=== PATIENT | female | born 2000 | race Caucasian/White ===

== ENCOUNTER 2021-02-27 19:24 | Emergency (ER) | payer OTHER ==
[~2021-02-27] VITALS: Ht 162.6 cm; Wt 50.0 kg
[2021-02-27 19:56] LABS: BASO % 0.2 % (0.0-1.0); EOS # 0.1 10^3/uL (0.0-0.5); EOS % 1.1 % (0.0-3.0); HEMATOCRIT 36.1 % (36.0-47.0); HEMOGLOBIN 11.8 g/dl (12.0-15.5); LYMPH # 1.4 10^3/uL (1.5-5.0); LYMPH % 11.2 % (24.0-44.0); MEAN CORPUSCULAR HEMOGLOBIN 29.7 pg (27.0-33.0); MEAN CORPUSCULAR HGB CONC 32.7 g/dl (32.0-36.5); MEAN CORPUSCULAR VOLUME 90.9 fl (80.0-96.0); MONO # 0.7 10^3/uL (0.0-0.8); MONO % 5.6 % (2.0-8.0); NEUTROPHILS # 10.4 10^3/uL (1.5-8.5); NEUTROPHILS % 81.4 % (36.0-66.0); PLATELET COUNT, AUTOMATED 150 10^3/uL (150-450); RED BLOOD COUNT 3.97 10^6/uL (4.00-5.40); WHITE BLOOD COUNT 12.8 10^3/uL (4.0-10.0)
[2021-02-27 20:30] LABS: HCG, SERUM QUALITATIVE POSITIVE (NEGATIVE)
[2021-02-27 20:34] LABS: BLOOD UREA NITROGEN 11 MG/DL (7-18); CALCIUM LEVEL 8.7 MG/DL (8.5-10.1); CARBON DIOXIDE LEVEL 25 MEQ/L (21-32); CHLORIDE LEVEL 105 MEQ/L (98-107); CREATININE FOR GFR 0.77 MG/DL (0.55-1.30); GLOMERULAR FILTRATION RATE > 60.0 (>60); GLUCOSE, FASTING 100 MG/DL (70-100); POTASSIUM SERUM 3.6 MEQ/L (3.5-5.1); SODIUM LEVEL 138 MEQ/L (136-145)
[2021-02-27 21:15] LABS: ALBUMIN 4.1 GM/DL (3.2-5.2); ALT/SGPT 21 U/L (12-78); BILIRUBIN,DIRECT 0.1 MG/DL (0.0-0.2); BILIRUBIN,TOTAL 0.2 MG/DL (0.2-1.0); HCG, SERUM QUANTITATIVE 119960 MIU/ML; LIPASE 92 U/L (73-393); TOTAL PROTEIN 7.3 GM/DL (6.4-8.2)
[2021-02-27] MEDS ORDERED: NS 1,000 ML IV ONE (21:15)
--- NOTE | 2021-02-27 21:37 | REPVR ---
PROCEDURE INFORMATION: Exam: US First Trimester, Transabdominal Exam date and time: 02/27/2021 9:23 PM Age: 20 years old Clinical indication: Lmp or gestational age (in weeks): 8w 1d; Other: Syncope; ; Additional info: Syncope eval for iup TECHNIQUE: Imaging protocol: Real-time transabdominal obstetrical ultrasound of the maternal pelvis and a first trimester , less than 14 weeks 0 days, with image documentation. COMPARISON: No relevant prior studies available. FINDINGS: Gestation: Single gestational sac demonstrated in the uterus. Single pole demonstrated within the gestational sac with a crown-rump length of 1.7 cm. Embryonic/ heart rate: heart rate is 147 bpm. Extra-embryonic membranes/Placenta: Unremarkable. No subchorionic bleed. Amniotic fluid: Amniotic fluid is normal for gestational age. BIOMETRY: Gestational age (AUA): Gestational age based on crown-rump length of 1.7 cm is 8 weeks 1 day in this patient with unknown LMP. MATERNAL: Uterus: Unremarkable. Cervix: Unremarkable. Right adnexa: Unremarkable. Left adnexa: Unremarkable. Intraperitoneal space: No intraperitoneal free fluid. IMPRESSION: Unremarkable 1st trimester scan at 8 weeks 1 day. Detailed structural survey can be performed between 19-20 weeks if clinically desired. Electronically signed by: Levy Brooks On 02/27/2021 21:36:26 PM
[2021-02-27] MEDS ORDERED: CEPHALEXIN 500 MG CAP PO ONE (21:50)
[2021-02-27] MEDS ORDERED: CEPH500C PO (22:05)
[2021-02-27 22:49] VITALS: BP 116/72
--- NOTE | 2021-02-28 21:24 | ECGEPIP ---
[facility] - ED Test Date: 2021-02-27 Pat Name: LUCIANA RUGGIERO Department: Room: - Gender: Female [employer] Director: ed : 2000 Requested By: DONNA Lainez Order Number: [id number] Reading MD: Cassidy Thayer Measurements Intervals [place] Rate: 75 P: 60 CA: 152 QRS: 63 QRSD: 88 T: 33 QT: 386 QTc: 431 Interpretive Statements Normal sinus rhythm with sinus arrhythmia No prior Electronically Signed on 02-28-2021 21:23:47 EDT by Cassidy Thayer
== END 2021-02-27 23:04 | disposition home or self-care (01) ==
LOC: M ED 19:24
DX: O26.91 Pregnancy related conditions, unspecified, first trimester (principal); R55 Syncope and collapse; O99.711 Diseases of the skin and subcutaneous tissue complicating pregnancy, first trimester; L03.115 Cellulitis of right lower limb; O99.341 Other mental disorders complicating pregnancy, first trimester; Z3A.08 8 weeks gestation of pregnancy

== ENCOUNTER → 2022-10-19 | Outpatient (CLI) | payer OTHER ==
[~2022-10-19] MED LIST: CEPH500C PO
== END ==
LOC: M LABSMTC 09:27
PROVIDERS: ATTEND Anesthesiology
DX: Z20.828 Contact with and (suspected) exposure to other viral communicable diseases (principal); Z11.59 Encounter for screening for other viral diseases

== ENCOUNTER 2022-10-21 08:09 | Day surgery (SDC) | payer OTHER ==
[~2022-10-21] VITALS: Ht 162.6 cm; Wt 50.3 kg
[~2022-10-21 08:09] MED LIST changes: +AMPICILLIN SOD/SULBACTAM SOD 3 GM in D5W MINI-BAG PLUS 100 ML IV ONE
[2022-10-21] MEDS ORDERED: LR 1,000 ML IV SCH ×2 (08:25→11:55)
[2022-10-21] MEDS ORDERED: LIDOCAINE 2% 100MG/5ML SDV (FOR ANES.) As Ordered ONE (10:16)
[2022-10-21] MEDS ORDERED: ROCURONIUM BROMIDE 50MG/5ML VIAL As Ordered ONE (10:16)
[2022-10-21] MEDS ORDERED: propofoL 200 MG/20 ML VIAL As Ordered ONE (10:16)
[2022-10-21] MEDS ORDERED: SUGAMMADEX SODIUM 500 MG/5 ML VIAL (BRIDION) As Ordered ONE (10:16)
[2022-10-21] MEDS ORDERED: ACETAMINOPHEN 1000MG 100ML IV BAG As Ordered ONE ×2 (10:18→11:21)
[2022-10-21] MEDS ORDERED: ONDANSETRON 4MG 2ML VIAL As Ordered ONE (10:34)
[2022-10-21] MEDS ORDERED: LIDOCAINE 2% W/ EPINEPHRINE 1.7 ML DENTAL INJ As Ordered ONE (10:36)
[2022-10-21] MEDS ORDERED: CHLORHEXIDINE GLUCONATE 0.12 % 15ML UDC (PERIDEX ORAL RINSE) As Ordered ONE (10:36)
[2022-10-21] MEDS ORDERED: BUPIVACAINE LIPOSOME/PF 1.3% 20ML VIAL (13.3MG/ML)(EXPAREL) As Ordered ONE (10:37)
[2022-10-21] MEDS ORDERED: MIDAZOLAM INJ 2MG/2ML VIAL As Ordered ONE (10:38)
[2022-10-21] MEDS ORDERED: fentaNYL 100 MCG/2 ML INJECTION As Ordered ONE (10:38)
[2022-10-21] MEDS ORDERED: METOCLOPRAMIDE INJ 10MG/2ML VIAL IV PRN (11:55)
[2022-10-21] MEDS ORDERED: oxyCODONE 5MG TAB PO PRN (11:55)
[2022-10-21] MEDS ORDERED: ONDANSETRON 4MG 2ML VIAL IV PRN (11:55)
[2022-10-21] MEDS ORDERED: MORPHINE 2 MG/ML 1ML VIAL IV PRN (11:55)
[2022-10-21] MEDS ORDERED: fentaNYL 100 MCG/2 ML INJECTION IV PRN (11:55)
[2022-10-21] MEDS ORDERED: MEPERIDINE 25 MG/ML 1ML VIAL IV PRN (12:30)
[2022-10-21] MEDS ORDERED: MEPERIDINE 25 MG/ML 1ML VIAL As Ordered ONE (12:31)
[2022-10-21 12:58] VITALS: BP 117/80
== END 2022-10-21 13:24 | disposition home or self-care (01) ==
LOC: M SDC 08:09
PROVIDERS: ATTEND Dentist
DX: K02.9 Dental caries, unspecified (principal); F40.232 Fear of other medical care; F90.9 Attention-deficit hyperactivity disorder, unspecified type; F41.1 Generalized anxiety disorder; F17.290 Nicotine dependence, other tobacco product, uncomplicated
CPT/HCPCS: 81025; 88300; C9290; D7210; D9223; J0131; J0295; J1100; J2250; J2405; J3010

== ENCOUNTER 2024-06-25 08:00 | Emergency (ER) | payer OTHER ==
[~2024-06-25] VITALS: Ht 162.6 cm; Wt 58.1 kg
[~2024-06-25 08:00] MED LIST changes: -AMPICILLIN SOD/SULBACTAM SOD 3 GM in D5W MINI-BAG PLUS 100 ML IV ONE
[2024-06-25] MEDS ORDERED: NAPR-837 PO (08:41)
[2024-06-25 08:47] VITALS: BP 106/65; TEMP 97.9; O2SAT 98
[2024-06-25] MEDS: NAPROXEN 250 MG TAB PO ONE (08:51)
== END 2024-06-25 09:01 | disposition home or self-care (01) ==
LOC: M ED 08:00
DX: S03.41XA Sprain of jaw, right side, initial encounter (principal); Z79.1 Long term (current) use of non-steroidal anti-inflammatories (NSAID)